=== PATIENT | female | born 1965 | race Two or more races ===

== ENCOUNTER 2024-11-01 05:57 | Day surgery (SDC) | payer OTHER ==
[~2024-11-01 05:57] MED LIST: ATACAND4 MG PO; MINIVELLE1 EAC1; PROMETRIUM200 MG PO; TOPROL XL25 M1 PO
[2024-11-01] MEDS ORDERED: POVIDONE-IODINE 118 ML BOTT TOP ONE (07:54)
[2024-11-01] MEDS ORDERED: KETOROLAC TROMETHAMINE 30 MG VIAL IV STA (08:53)
[2024-11-01] MEDS ORDERED: MORPHINE SULFATE 4 MG/ML VIAL IV ONE (10:10)
[2024-11-01] MEDS ORDERED: KETOROLAC TROMETHAMINE 30 MG VIAL ONE (10:23)
== END 2024-11-01 11:50 | disposition home or self-care (01) ==
LOC: CIR.AMB 05:57
PROVIDERS: ATTEND Obstetrics & Gynecology
DX: N85.8 Other specified noninflammatory disorders of uterus (principal); N95.0 Postmenopausal bleeding; D25.0 Submucous leiomyoma of uterus; N85.00 Endometrial hyperplasia, unspecified